=== PATIENT | female | born 1995 | race Hispanic/Latino ===

== ENCOUNTER 2018-06-30 01:55 | Emergency (ER) | payer BC ==
--- NOTE | 2018-06-30 02:20 | ED PDOC ---
HPI: Psych/Substance Abuse Time Seen by Provider: 06/30/18 02:11 Chief Complaint (Nursing): Alcohol Ingestion Chief Complaint (Provider): alcohol ingestion History Per: Patient (22 y/o female brought to ED by police for evaluation of apparent etoh intoxication. Patient was noted nauseous earlier but states she feels well today. Denies any physical injury. ) Past Medical History Reviewed: Historical Data, Nursing Documentation, Vital Signs Vital Signs: Last Vital Signs Temp 98.9 F 06/30/18 02:04 Pulse 106 H 06/30/18 02:04 Resp 16 06/30/18 02:04 BP 114/71 06/30/18 02:04 Pulse Ox 98 06/30/18 02:04 - Family History Family History: States: No Known Family Hx - Allergies Allergies/Adverse Reactions: Allergies Allergy/AdvReac Type Severity Reaction Status Date / Time No Known Allergies Allergy Verified 06/30/18 02:06 Review of Systems ROS Statement: Except As Marked, All Systems Reviewed And Found Negative Physical Exam - Reviewed Nursing Documentation Reviewed: Yes Vital Signs Reviewed: Yes - Physical Exam Appears: Positive for: Well, Non-toxic, No Acute Distress Head Exam: Positive for: ATRAUMATIC, NORMAL INSPECTION, NORMOCEPHALIC Skin: Positive for: Normal Color, Warm, DRY Eye Exam: Positive for: EOMI, Normal appearance, PERRL ENT: Positive for: Normal ENT Inspection Neck: Positive for: Normal, Painless ROM Cardiovascular/Chest: Positive for: Regular Rate, Rhythm Respiratory: Positive for: CNT, Normal Breath Sounds Gastrointestinal/Abdominal: Positive for: Normal Exam, Soft Back: Positive for: Normal Inspection Extremity: Positive for: Normal ROM Neurologic/Psych: Positive for: Alert, Oriented - ECG O2 Sat by Pulse Oximetry: 98 - Progress ED Course And Treament: Patient is accompanied by sober friend. Noted to have steady gait. Will d/c to care of friend. Disposition - Clinical Impression Clinical Impression: Alcohol ingestion - Patient ED Disposition Is Patient to be Admitted: No - Disposition Disposition: Routine/Home Disposition Time: 02:19 Condition: FAIR Instructions: Alcohol Poisoning
[2018-06-30 02:55] VITALS: BP 122/71; PULSE 88; RESP 17; TEMP 98.5; O2SAT 100
== END 2018-06-30 02:46 | disposition home or self-care (01) ==
LOC: H.ER 01:55
DX: F10.129 Alcohol abuse with intoxication, unspecified (principal)